=== PATIENT | female | born 1965 | race Caucasian/White ===

== ENCOUNTER → 2023-07-22 07:55 | Outpatient (REF) | payer BC, SELFPAY | LOC: WDC 07:55 | PROVIDERS: ATTENDING PHYSICIAN Nurse Practitioner | DX: R92.333 Mammographic heterogeneous density, bilateral breasts (principal) | CPT/HCPCS: 76641 ==

== ENCOUNTER → 2024-01-22 08:04 | Outpatient (REF) | payer BC, SELFPAY | LOC: WDC 08:04 | PROVIDERS: ATTENDING PHYSICIAN Nurse Practitioner | DX: R92.8 Other abnormal and inconclusive findings on diagnostic imaging of breast (principal) | CPT/HCPCS: 76642 ==

== ENCOUNTER → 2024-05-08 08:29 | Outpatient (REF) | payer BC, SELFPAY | LOC: HWWDC 08:29 | PROVIDERS: ATTENDING PHYSICIAN Registered Nurse | DX: Z12.31 Encounter for screening mammogram for malignant neoplasm of breast (principal) | CPT/HCPCS: 77063; 77067 ==

== ENCOUNTER 2024-06-29 12:18 | Emergency (ER) | payer BC, SELFPAY ==
[2024-06-29 12:22] VITALS: BP 195/93
[2024-06-29 13:01] LABS: % Basophils 0.4 % (0-2); % Eosinophils 1.6 % (0-6); % Immature Granulocytes 0.2 % (0-0.5); % Lymphocytes 31.6 % (20.5-51.1); % Monocytes 6.7 % (1.7-9.3); % Neutrophils 59.5 % (42.2-75.2); Absolute Eosinophils 0.1 10^3/uL (0-0.7); Absolute Lymphocytes 1.4 10^3/uL (1.2-3.4); Absolute Monocytes 0.3 10^3/uL (0.1-0.6); Absolute Neutrophils 2.7 10^3/uL (1.4-6.5); Hematocrit 39.3 % (37.0-47.0); Hemoglobin 13.3 g/dL (12.0-16.0); Mean Corp Hgb Conc. 33.8 g/dL (33.0-37.0); Mean Corpuscular Hgb 30.2 pg (27.0-31.0); Mean Corpuscular Volume 89.1 fL (81.0-99.0); Mean Platelet Volume 10.8 fL (7.4-10.4); Nucleated Red Blood Cells % 0 %; Platelet Count 204 10^3/uL (130-400); Red Blood Cell Count 4.41 10^6/uL (4.20-5.40); White Blood Cell Count 4.5 10^3/uL (4.8-10.8)
[2024-06-29 13:04] LABS: ALT (SGPT) 17 U/L (0-35); AST (SGOT) 28 U/L (14-36); Albumin 4.9 g/dl (3.5-5.0); Alkaline Phosphatase 98 U/L (38-126); Blood Urea Nitrogen 19 mg/dl (7-17); Carbon Dioxide 30 mmol/L (22-30); Chloride 104 mmol/L (98-107); Glucose 114 mg/dl (70-99); Potassium 3.7 mmol/L (3.5-5.1); Sodium 143 mmol/L (135-145); Total Bilirubin 1.4 mg/dl (0.2-1.3); Total Protein 7.8 g/dl (6.3-8.2); eGFR > 60.00
[2024-06-29 13:13] LABS: Troponin I < 0.012 ng/ml
[2024-06-29 15:27] VITALS: BP 173/90
--- NOTE | 2024-06-29 16:46 | ED.GENMED ---
History of Present Illness
General
Chief Complaint: Chest Pain
Source: patient
Exam Limitations: none
Time Seen by Provider: 06/29/24 16:31
History of Present Illness
History of Present Illness:
58yoF with no significant past medical history presenting with her for evaluation of chest pain. Patient reports right sided chest discomfort that began around 9 AM this morning while she was cleaning her house. The pain is described as a
grabbing sensation. Pain improves if she lays flat and worsened at one point when she leaned forward. Symptoms have mostly resolved at this point. She did have some right shoulder pain earlier but this is not unusual for her. She denies any
pleuritic or exertional symptoms. She denies any associated diaphoresis, dizziness, syncope, nausea, shortness of breath, calf pain, leg swelling. She denies any history of heart disease. No tobacco use.
Phy Exam
General Physical Exam
General Presentation: well appearing and no apparent distress
General age: appears stated age
General Skin: warm and dry
General Habitus: normal
General Mental: alert
ENT Exam
ENT Exam: normocephalic
Cardiovascular Exam
Cardiovascular Exam: regular rate/rhythm, no edema, no murmur and normal peripheral pulses (2+ DP pulses bilaterally)
Pulmonary Exam
Pulmonary Exam: lungs clear, no respiratory distress, no rales, no crackles, no rhonchi and no wheezing
Neurological Exam
Neurological Exam: alert
[place] Coma Scale
Eye Opening: Spontaneous
Verbal Response: Oriented
Motor Response: Obeys Commands
GCS Total Score: 15
Skin Exam
Skin Exam: normal color and warm/dry
Psychiatric Exam
Psychiatric Exam: normal mood/affect
Scores
Heart Score for Chest Pain Patients
STEMI patient?: No
History: Slightly or Non-Suspicious
ECG: Normal
Age: >45 - <65 years
Risk Factors: No Risk Factors
Troponin: </= Normal Limit
Heart Score for Chest Pain Patients: 1
Heart Score Risk: 2.5% MACE over next 6 weeks
Course
Orders/Labs/Results
Orders:
Orders
06/29/24 12:20
Electrocardiogram (*1) Urgent
Reason for Study: Chest Pain
06/29/24 12:21
EKG- Treatment ONCE
06/29/24 12:32
Complete Blood Count/With Diff Urgent
Comprehensive Metabolic Panel Urgent
Troponin I Urgent
06/29/24 16:42
Electrocardiogram (*1) Urgent
Reason for Study: Chest Pain
Cardiac Monitoring- Treatment ONCE
EKG- Treatment ONCE
CR Chest - 2 Views Urgent
Comment:
Reason For Exam: CP
06/29/24 18:04
Troponin I Urgent
Abnormal Lab Results
06/29/24
12:32
WBC 4.5 L 10^3/uL
(4.8-10.8)
MPV 10.8 H fL
(7.4-10.4)
BUN 19 H mg/dl
(7-17)
Creatinine 0.5 L mg/dL
(0.6-1.0)
Glucose 114 H mg/dl
(70-99)
Calcium 11.0 H mg/dl
(8.4-10.2)
Total Bilirubin 1.4 H mg/dl
(0.2-1.3)
06/29/24 12:32
06/29/24 12:32
Vital Signs
Initial and Last Documented VS:
Initial Vital Signs
Temp Pulse Resp BP Pulse Ox
98.3 F 69 18 195/93 99
06/29/24 12:22 06/29/24 12:22 06/29/24 12:22 06/29/24 12:22 06/29/24 12:22
Last Documented Vital Signs
Temp Pulse Resp BP Pulse Ox
98.5 F 61 12 161/82 100
06/29/24 17:34 06/29/24 18:15 06/29/24 18:15 06/29/24 18:00 06/29/24 18:15
MDM/Problems Addressed
Differential Diagnosis Includes:
58yoF here with R sided chest pain that started this morning. Better with laying flat. Now resolved. No associated dyspnea, nausea, diaphoresis. No known cardiac risk factors. She is hypertensive with otherwise normal vital signs. She is
well-appearing in no acute distress. Exam is reassuring. Differential diagnosis includes but is not limited to: Musculoskeletal, pericarditis, pneumonia, ACS
Initial ED plan: Cardiac labs and EKG obtained in triage. EKG shows sinus bradycardia without ischemic changes and troponin within normal limits. Will check delta troponin/EKG and chest x-ray.
*EKG
Interpreted by ED Provider?: Yes
EKG Intrepretation Date: 06/29/24
Heart Rate: 56
Rate: bradycardiac
Rhythm: sinus
[place]: normal axis
Interval: normal interval
QRS Pattern: normal QRS
Ischemia: no ischemia
*Critical Care Note
Total Time (30-74mins, 75-104mins- exclusive of procedures): Not Applicable
Update Note
Update Note:
Repeat EKG and troponin unchanged. Chest x-ray is clear. She remains pain-free on reassessment. No indication for hospitalization. She was advised to follow-up closely with her PCP and strict ED return precautions discussed. Patient and
in agreement with plan and she was discharged in stable condition.
ED Attending Note
-
Portions of this chart may have been created with voice recognition software.� Occasional wrong word or��sound alike� substitutions may have occurred due to the inherent limitations of voice recognition software.
Discharge Plan
Departure
Patient Disposition: Home (Routine Discharge)
Date of Disposition: 06/29/24
Time of Disposition: 19:09
Patient with high blood pressure during this ER visit?: Yes
Discharge Problem:
Chest pain
Instructions: Chest Pain PCP Follow Up
Referrals:
Vijay Reddy CRNP [Family Provider] -
Activity Restrictions/Additional Instructions:
Please call tomorrow to schedule a follow-up with your family doctor. Return to the ER immediately with any new or worsening symptoms.
Interventions
Interventions:
*Risk Screen - Suicide Last Done: 06/29/24 17:36
*General Assessment Last Done: 06/29/24 17:36
*Neglect/Abuse Screening Last Done: 06/29/24 17:36
*ED- Fall Risk Assessment Last Done: 06/29/24 17:36
*ED COVID-19 Vaccine History Last Done: 06/29/24 17:36
ED- Cardiac Assessment Last Done: 06/29/24 18:07
Discharge Date and Time
Print Language: SYRIAC
[2024-06-29 17:26] VITALS: BP 167/89
[2024-06-29 17:33] VITALS: BMI 22.1
[2024-06-29 17:34] VITALS: BP 167/89
[2024-06-29 18:00] VITALS: BP 161/82
[2024-06-29 18:37] LABS: Troponin I < 0.012 ng/ml
[2024-06-29 19:00] VITALS: BP 154/77
== END 2024-06-29 19:45 | disposition home or self-care (01) ==
LOC: EMR 12:18
PROVIDERS: Physician Assistant; Student in an Organized Health Care Education/Training Program; EMERGENCY PHYSICIAN Emergency Medicine
DX: R07.89 Other chest pain (principal); R00.1 Bradycardia, unspecified
CPT/HCPCS: 99285; 71046; 80053; 84484; 85025; 93005

== ENCOUNTER → 2024-08-20 12:53 | Outpatient (REF) | payer BC, SELFPAY | LOC: WDC 12:53 | DX: R92.2 Inconclusive mammogram (principal) | CPT/HCPCS: 76641 ==